=== PATIENT | female | born 1995 | race Caucasian/White ===

== ENCOUNTER 2017-02-21 13:04 | Outpatient (CLI) | END 2017-02-21 13:05 | disposition home or self-care (01) | LOC: LAB 13:04 | PROVIDERS: ATTEND Nurse Practitioner Family | DX: J02.9 Acute pharyngitis, unspecified (principal) | CPT/HCPCS: 87880 ==

== ENCOUNTER 2017-08-26 19:11 | Emergency (ER) ==
[2017-08-26 19:19] VITALS: BP 108/72; TEMP 98; BMI 24.2
--- NOTE | 2017-08-26 19:38 | ED.PDOC ---
General ED Provider: Dr. MATIAS ORTIZ Chief Complaint: Abdominal Pain Stated Complaint: 2 month history of lower mild abominal pain. Denies any vaginal discharge. Had a 2 months ago. Has not followed up since. Reports history of wound infections post c section. Denies any fever nausea or vomiting. Time Seen by Physician: 19:37 Mode of Arrival: Walk-In Information Source: Patient Exam Limitations: No limitations Nursing and Triage Documentation Reviewed and Agree: Yes Reviewed sepsis parameters & appropriate labs ordered?: No System Inflammatory Response Syndrome: Not Applicable Sepsis Protocol: For patient's 13 years and over: Temp is 96.8 and below OR 101 and greater Pulse >90 BPM Resp >20/minute Acutely Altered Mental Status Are patient's symptoms suggestive of a new infection, such as: -Pneumonia -Skin, Soft Tissue -Endocarditis -UTI -Bone, Joint Infection -Implantable Device -Acute Abdominal Infection -Wound Infection -Meningitis -Blood Stream Catheter Infection -Unknown System Inflammatory Response Syndrome: Not Applicable GI Complaint Exam - Abdominal Pain Complaint/Exam Onset: Gradual Duration: months Symptoms Are: Still present Timing: Intermittent Initial Severity: Moderate Current Severity: Mild Location of Pain: Suprapubic Character: Reports: Aching, Throbbing Alleviating: Reports: Spontaneous resolution Associated Signs and Symptoms: Denies: Diaphoresis, Fever, Cough, Chest pain, Dizziness, Back pain, Constipation, Blood in stool, Dysuria, Urinary frequency, Decreased urine output, Decreased appetite, Vaginal bleeding, Vaginal discharge , Nausea, Vomiting, Diarrhea, Sore throat, Decreased activity Ovarian Torsion Risk Factors: Reports: Reproductive age Surgical Obstruction Risk Factors: Reports: Prior abdominal surgery Related Surgical History: Reports: Appendectomy Patient Rh Status: Unknown Review of Systems - Review Of Systems Constitutional: Reports: No symptoms Eyes: Reports: No symptoms Ears, Nose, Mouth, Throat: Reports: No symptoms Respiratory: Reports: No symptoms Cardiac: Reports: No symptoms GI: Reports: Abdominal pain, Nausea, Poor appetite : Reports: No symptoms Musculoskeletal: Reports: No symptoms Skin: Reports: No symptoms Neurological: Reports: Anxiety Endocrine: Reports: No symptoms Hematologic/Lymphatic: Reports: No symptoms All Other Systems: Reviewed and Negative Past Medical History - Past Medical History Previously Healthy: Yes Endocrine: Reports: None Cardiovascular: Reports: None Respiratory: Reports: None Hematological: Reports: None Gastrointestinal: Reports: None Genitourinary: Reports: None Neuro/Psych: Reports: None Musculoskeletal: Reports: None Cancer: Reports: None Last Menstrual Period: 08/24/17 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 - Surgical History General Surgical History: Reports: , Appendectomy - Family History Family History: Reports: None - Social History Smoking Status: Never smoker Hx Substance Use: No Alcohol Screening: None Lives: With family - Immunizations Tetanus Shot up to Date: No Physical Exam - Physical Exam Appearance: Ill-appearing Ill-appearing: Mild Pain Distress: Mild Eyes: THERESA, EOMI, Conjunctiva clear ENT: Ears normal, Nose normal, Oropharynx normal Respiratory: Airway patent, Breath sounds clear, Breath sounds equal, Respirations nonlabored Cardiovascular: RRR, Pulses normal, No rub, No murmur GI/: Soft, No masses, Bowel sounds normal, No Organomegaly, Tender (mild) Musculoskeletal: Normal strength, ROM intact, No edema, No calf tenderness Skin: Warm, Dry, Normal color Neurological: Sensation intact, Motor intact, Reflexes intact, Cranial nerves intact, Alert, Oriented Psychiatric: Affect appropriate, Mood appropriate Interpretation - Radiology Interpretation Radiology Interpretation By: Radiologist Radiology Results: Negative Exam Interpreted: CT Scan Critical Care Note - Critical Care Note Total Time (mins): 0 Course - Course Hematology/Chemistry: 08/26/17 20:07 08/26/17 20:07 Orders, Labs, Meds: Lab Review 08/26/17 08/26/17 08/26/17 20:07 20:07 20:07 WBC 7.70 RBC 4.35 Hgb 10.1 L Hct 32.0 L MCV 73.6 L MCH 23.2 L MCHC 31.6 L RDW Coeff of Alyssa 16.2 H Plt Count 332 Immature Gran % (Auto) 0.4 Neut % (Auto) 60.4 Lymph % (Auto) 33.4 Ector % (Auto) 3.6 Eos % (Auto) 1.8 Baso % (Auto) 0.4 Immature Gran # (Auto) 0.0 Neut # (Auto) 4.7 Lymph # (Auto) 2.6 Ector # (Auto) 0.3 L Eos # (Auto) 0.1 Baso # (Auto) 0.0 Sodium 141 Potassium 3.5 Chloride 109 H Carbon Dioxide 19 L Anion Gap 16.5 BUN 5 L Creatinine 0.86 Estimated GFR (MDRD) 83.00 BUN/Creatinine Ratio 5.81 Glucose 83 Calcium 9.4 Total Bilirubin 0.3 AST 20 ALT 20 Alkaline Phosphatase 84 Total Protein 7.6 Albumin 4.2 Globulin 3.4 Albumin/Globulin Ratio 1.24 Amylase 66 Lipase 27 Serum , Qual Negative Urine Color Urine Clarity Urine pH Ur Specific [place] Urine Protein Urine Glucose (UA) Urine Ketones Urine Blood Urine Nitrite Urine Bilirubin Urine Urobilinogen Ur Leukocyte Esterase Urine Microscopic WBC Ur Squamous Epith Cells 08/26/17 20:11 WBC RBC Hgb Hct MCV MCH MCHC RDW Coeff of Alyssa Plt Count Immature Gran % (Auto) Neut % (Auto) Lymph % (Auto) Ector % (Auto) Eos % (Auto) Baso % (Auto) Immature Gran # (Auto) Neut # (Auto) Lymph # (Auto) Ector # (Auto) Eos # (Auto) Baso # (Auto) Sodium Potassium Chloride Carbon Dioxide Anion Gap BUN Creatinine Estimated GFR (MDRD) BUN/Creatinine Ratio Glucose Calcium Total Bilirubin AST ALT Alkaline Phosphatase Total Protein Albumin Globulin Albumin/Globulin Ratio Amylase Lipase Serum , Qual Urine Color Yellow Urine Clarity Clear Urine pH 6.0 Ur Specific [place] 1.025 Urine Protein Negative Urine Glucose (UA) Negative Urine Ketones Negative Urine Blood Negative Urine Nitrite Negative Urine Bilirubin Negative Urine Urobilinogen 1.0 Ur Leukocyte Esterase Trace Urine Microscopic WBC 0-2 Ur Squamous Epith Cells 0-2 Orders Category Date Time Status AMYLASE Stat LAB 08/26/17 20:07 Completed CBC W/ AUTO DIFF Stat LAB 08/26/17 20:07 Completed COMPREHENSIVE METABOLIC PANEL Stat LAB 08/26/17 20:07 Completed HCG QUALITATIVE [SERUM ] Stat LAB 08/26/17 20:07 Completed LIPASE Stat LAB 08/26/17 20:07 Completed URINALYSIS C & S IF INDICATED Stat LAB 08/26/17 20:11 Completed Ibuprofen Susp [Motrin Susp] MEDS 08/26/17 22:22 Discontinued 600 mg PO ONCE STA Ketorolac Tromethamine [Toradol] MEDS 08/26/17 19:51 Discontinued 60 mg IM ONCE STA CT ABD/PEL WO RENAL STONE PROT Stat RADS 08/26/17 19:51 Completed Medications Discontinued Medications Generic Name Dose Route Start Last Admin Trade Name Freq PRN Reason Stop Dose Admin Ibuprofen 600 mg 08/26/17 22:22 08/26/17 22:28 Motrin Susp PO 08/26/17 22:23 Not Given ONCE STA Ketorolac Tromethamine 60 mg 08/26/17 19:51 08/26/17 20:13 Toradol IM 08/26/17 19:52 Not Given ONCE STA Vital Signs: Temp Pulse Resp BP Pulse Ox 08/26/17 19:12 98 F 74 20 108/72 99 Departure - Departure Time of Disposition: 21:15 Disposition: HOME SELF-CARE Discharge Problem: Abdominal pain Instructions: Acute Abdominal Pain (ED) Condition: Fair Pt referred to PMD for follow-up: Yes IPMP verified?: No Additional Instructions: Take Medications as prescribed Follow up with PCP in 3 days Prescriptions: Sulfamethoxazole/Trimethoprim [Bactrim Ds Tablet] 1 each PO Q12HR #20 tablet Dicyclomine HCl [Bentyl] 10 mg PO TID PRN #20 capsule PRN Reason: Abdominal Pain Ibuprofen Susp [Motrin Susp Ud] 600 mg PO Q4-6H PRN #240 ml PRN Reason: Fever >101 Tramadol HCl [Ultram] 50 mg PO Q6H PRN #14 tablet PRN Reason: Severe Pain Allergies/Adverse Reactions: Allergies cefprozil [From Cefzil] Allergy (Severe, Unverified 08/26/17 19:18) Anaphylaxis pertussis vaccine,adsorbed Allergy (Severe, Unverified 08/26/17 19:18) Anaphylaxis Home Medications: Ambulatory Orders Dicyclomine HCl [Bentyl] 10 mg PO TID PRN #20 capsule 08/26/17 Ibuprofen Susp [Motrin Susp Ud] 600 mg PO Q4-6H PRN #240 ml 08/26/17 Sulfamethoxazole/Trimethoprim [Bactrim Ds Tablet] 1 each PO Q12HR #20 tablet 06/03 Tramadol HCl [Ultram] 50 mg PO Q6H PRN #14 tablet 08/26/17 Disposition Discussed With: Patient
[2017-08-26] MEDS: TORADOL IM STA (20:13)
--- NOTE | 2017-08-26 22:12 | CT ---
EXAM: CT scan of the abdomen and pelvis without contrast HISTORY: Suprapubic pain. Previous history of and appendectomy TECHNIQUE: Imaging of the abdomen and pelvis was performed without contrast. 3 mm thin axial images and coronal and sagittal reconstructions were provided for interpretation. Comparison none. FINDINGS: The liver, spleen, pancreas, adrenal glands and kidneys appear normal. The proximal urete rs are normal size. The small and large bowel loops are normal in caliber. There is no free air. Th ere has been previous appendectomy. Small nonobstructing calculi are seen within the calyces of the k idneys. The helical images obtained through the pelvis demonstrate a normal appearance of the rectum, urinary bladder. There is no free fluid seen within the pelvis. No retroperitoneal abnormalities are seen. Lung bases are clear. No lytic or blastic lesions are seen within the osseous structures. IMPRESSION: There is no bowel obstruction or acute inflammatory change seen within the abdomen and p eduard. There is no ureteral obstruction.
[2017-08-26] MEDS: MOTRIN SUSP PO STA (22:28)
== END 2017-08-26 22:25 | disposition home or self-care (01) ==
LOC: ED 19:11
DX: R10.30 Lower abdominal pain, unspecified (principal); Z98.890 Other specified postprocedural states
CPT/HCPCS: 36415; 74176; 80053; 81001; 82150; 83690; 84703; 85025; 96372; 99283

== ENCOUNTER 2017-10-31 14:03 | Outpatient (CLI) ==
--- NOTE | 2017-10-31 15:28 | DI ---
EXAM: Cervical spine radiographs. HISTORY: Initial presentation for cervical spurring. COMPARISON: None available. TECHNIQUE: Frontal, lateral and odontoid views. FINDINGS: The normal curvature and alignment are maintained. Vertebral body and intervertebral disc heights are normal. No fracture or subluxation is seen. Prevertebral soft tissues are unremarkable . IMPRESSION: No acute abnormality of the cervical spine.
== END 2017-10-31 14:04 | disposition home or self-care (01) ==
LOC: RAD 14:03
PROVIDERS: ATTEND Emergency Medicine
DX: S13.4XXA Sprain of ligaments of cervical spine, initial encounter (principal)